=== PATIENT | female | born 1960 | race Caucasian/White ===

== ENCOUNTER 2017-05-19 16:34 | Inpatient (IN) | payer MEDICAID ==
[~2017-05-19] VITALS: Ht 160 cm; Wt 60.7 kg
[~2017-05-19 16:34] MED LIST: ALPR1TAB2 PO; BUTA-91; BUTA-91 OR; CARI250T; GABA800T87 OR; LORA-655; NOR10T PO; OXY10CRT PO; OXYC10TA44 PO; POLY335015 OR; PRO10T; QUET25TA37 PO; TRAM-297; VENL25TA2; ZOLP-158 PO
[2017-05-19 18:21] LABS: Basophils # (auto) 0 uL; Basophils % (auto) 0.5 % (0.0-2.0); Eosinophils # (auto) 0.1 uL; Eosinophils % (auto) 1.5 % (0.0-7.0); Hematocrit 39.5 % (36.0-46.0); Lymphocytes # (auto) 1.6 uL; Mean Corpuscular Hemoglobin 27.9 pg (28.0-32.0); Mean Corpuscular Volume 84.6 fL (80.0-100.0); Mean Platelet Volume 8.3 fL (6.9-10.8); Monocytes # (auto) 0.4 uL; Monocytes % (auto) 5.9 % (0.0-12.0); Neutrophils # (auto) 4.4 uL; Neutrophils % (auto) 67.1 % (37.0-80.0); Nucleated Red Blood Cells % 0.1 %; Platelet Count (auto) 197 10^3/uL (140-450); White Blood Cell 6.6 10^3/uL (4.4-10.8)
[2017-05-19 19:00] LABS: Albumin 3.5 g/dL (3.4-5.0); Alkaline Phosphatase 86 U/L (45-117); Anion Gap 8 (5-15); Aspartate Aminotransferase 39 U/L (15-37); Bilirubin, Total 0.3 mg/dL (0.2-1.0); Blood Urea Nitrogen 12 mg/dL (7-18); Carbon Dioxide 28 mmol/L (21-32); Chloride 107 mmol/L (98-107); GFR African American 171 mL/min; GFR Non-African American 142 mL/min; Glucose 97 mg/dL (74-106); Potassium 4.4 mmol/L (3.5-5.1); Sodium 143 mmol/L (136-145); Total Protein 7.2 g/dL (6.4-8.2)
[2017-05-19] MEDS ORDERED: ONDANSETRON HCL 4 MG/2 ML VIAL ONE (19:25)
[2017-05-19] MEDS ORDERED: HYDROmorphone HCL 2 MG/ML VL ONE (19:25)
[2017-05-19] MEDS ORDERED: SODIUM CHLORIDE 0.9% 500 ML IVB ONE (19:30)
[2017-05-19] MEDS ORDERED: HYDROmorphone HCL 2 MG/ML VL IV ONE (19:30)
[2017-05-19] MEDS ORDERED: ONDANSETRON HCL 4 MG/2 ML VIAL IV ONE (19:30)
[2017-05-19] MEDS ORDERED: BENZOCAINE (DENTAL) 20 % SPRAY 60ML MT ONE (19:40)
[2017-05-19 20:26] LABS: Urine RBC None Seen /hpf (0 - 4)
[2017-05-19 20:58] LABS: Urine Bilirubin Negative (Negative); Urine Blood Negative /uL (Negative); Urine Color Yellow (Yellow); Urine Glucose Normal (Normal); Urine Ketone Negative (Negative); Urine Nitrite Negative (Negative); Urine Squamous Epithelial Cell FEW /hpf (<5); Urine Urobilinogen Normal (Negative)
[2017-05-19] MEDS ORDERED: PANTOPRAZOLE 40 MG/10 ML VIAL IV ONE (23:15)
[2017-05-19] MEDS ORDERED: NITROGLYCERIN 0.4 MG SL TAB SL PRN (23:15)
[2017-05-19] MEDS: SODIUM CHLORIDE 0.9% 1,000 ML IV SCH (23:24)
[2017-05-20] MEDS: ONDANSETRON HCL 4 MG/2 ML VIAL IV PRN ×4 (01:32→17:07)
[2017-05-20] MEDS: HYDROmorphone HCL 2 MG/ML VL IV PRN ×3 (01:32→19:48)
[2017-05-20 04:17] LABS: Basophils # (auto) 0.1 uL; Eosinophils # (auto) 0.2 uL; Eosinophils % (auto) 3.3 % (0.0-7.0); Hematocrit 36.4 % (36.0-46.0); Hemoglobin 12.2 g/dL (12.2-16.2); Lymphocytes # (auto) 2.1 uL; Lymphocytes % (auto) 36.4 % (10.0-50.0); Mean Corpuscular Hemoglobin 28.3 pg (28.0-32.0); Mean Corpuscular Hgb Conc. 33.4 g/dL (32.0-36.0); Mean Corpuscular Volume 84.9 fL (80.0-100.0); Mean Platelet Volume 8.4 fL (6.9-10.8); Monocytes # (auto) 0.5 uL; Monocytes % (auto) 8.7 % (0.0-12.0); Neutrophils # (auto) 2.9 uL; Neutrophils % (auto) 50.6 % (37.0-80.0); Nucleated Red Blood Cells % 0.1 %; Platelet Count (auto) 176 10^3/uL (140-450); Red Cell Distribution Width 16.1 % (11.8-14.3); White Blood Cell 5.7 10^3/uL (4.4-10.8)
[2017-05-20 04:25] LABS: BUN/Creatinine Ratio 21.3; Bilirubin, Total 0.4 mg/dL (0.2-1.0); Potassium 3.9 mmol/L (3.5-5.1); Total Protein 6.4 g/dL (6.4-8.2)
[2017-05-20] MEDS ORDERED: IOHEXOL 300 MG/ML 100ML BOTTLE IJ ONE (09:09)
[2017-05-20] MEDS: SODIUM CHLORIDE 0.9% 1,000 ML IV SCH ×2 (10:22→21:32)
[2017-05-20 11:11] VITALS: BP 156/78
[2017-05-20] MEDS ORDERED: MORP60TA25 PO (11:23)
[2017-05-20] MEDS ORDERED: TIZA2TAB3 PO (11:23)
[2017-05-20] MEDS: ENOXAPARIN SOD 40 MG/0.4 ML SYRINGE SC SCH (11:39)
[2017-05-20] MEDS: PANTOPRAZOLE 40 MG/10 ML VIAL IV SCH (11:40)
[2017-05-20] MEDS ORDERED: ZOLP10TA PO (12:45)
[2017-05-20] MEDS ORDERED: ALPR1TAB2 PO (12:45)
[2017-05-20] MEDS ORDERED: BUTA-280 OR (12:45)
[2017-05-20] MEDS: BUTALBITAL-ASPIRIN-CAFF(FioriNAL) CAP PO PRN (17:07)
[2017-05-20] MEDS ORDERED: ZOLPIDEM TARTRATE 5 MG TAB PO SCH (21:00)
[2017-05-20] MEDS: ALPRAZolam 0.5 MG TAB PO SCH (21:31)
[2017-05-20 22:00] VITALS: BP 101/60
[2017-05-20] MEDS ORDERED: PATIENTS OWN MEDICATION (Alprazolam (Xanax) 1 TAB) PO SCH ×2 (22:00)
[2017-05-21] MEDS: HYDROmorphone HCL 2 MG/ML VL IV PRN ×3 (00:49→12:45)
[2017-05-21] MEDS: ONDANSETRON HCL 4 MG/2 ML VIAL IV PRN ×2 (01:15→12:45)
[2017-05-21] MEDS: BUTALBITAL-ASPIRIN-CAFF(FioriNAL) CAP PO PRN ×3 (01:20→14:45)
[2017-05-21 05:00] VITALS: BP 129/75
[2017-05-21 08:00] VITALS: BP 119/85
[2017-05-21] MEDS: ALPRAZolam 0.5 MG TAB PO SCH (08:15)
[2017-05-21] MEDS: PANTOPRAZOLE 40 MG/10 ML VIAL IV SCH (08:16)
[2017-05-21] MEDS: ENOXAPARIN SOD 40 MG/0.4 ML SYRINGE SC SCH (08:16)
[2017-05-21] MEDS: SODIUM CHLORIDE 0.9% 1,000 ML IV SCH (08:21)
[2017-05-21 09:00] VITALS: BP 119/85
[2017-05-21 13:00] VITALS: BP 117/81
[2017-05-21] MEDS ORDERED: BUTA-251 PO (14:17)
[2017-05-21 15:19] VITALS: BP 119/85
== END 2017-05-21 15:45 | disposition home or self-care (01) | DRG 861 ==
LOC: ER 16:34 → EDBD 16:34 → TELE 16:35 → TELE-WESTW 05-20 11:25
PROVIDERS: ADMIT Nurse Practitioner; ATTEND Hospitalist
DX: G89.4 Chronic pain syndrome (principal); I10 Essential (primary) hypertension; F32.9 Major depressive disorder, single episode, unspecified; M79.7 Fibromyalgia; G43.909 Migraine, unspecified, not intractable, without status migrainosus; G47.00 Insomnia, unspecified; B19.20 Unspecified viral hepatitis C without hepatic coma; F41.9 Anxiety disorder, unspecified; I25.10 Atherosclerotic heart disease of native coronary artery without angina pectoris; Z88.5 Allergy status to narcotic agent; Z79.899 Other long term (current) drug therapy; I25.2 Old myocardial infarction; Z98.84 Bariatric surgery status; Z90.49 Acquired absence of other specified parts of digestive tract
CPT/HCPCS: 36415; 74176; 74250; 80053; 81001; 82150; 82962; 83690; 84484; 85025; 93005; 96361; 96374; 96375; C9113; J2405